=== PATIENT | female | born 1980 | race Caucasian/White ===

== ENCOUNTER 2016-05-31 20:52 | Emergency (ER) | payer BC ==
[2016-05-31 21:04] VITALS: BP 117/62
--- NOTE | 2016-05-31 21:25 | UC ---
Throat Pain/Nasal Que HPI - HPI Summary HPI Summary: Nasal congestion, ST, cough, fever starting 2 days ago. Denies wheezing or chest pain. 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 - History of Current Complaint Chief Complaint: UCGeneralIllness Stated Complaint: SORE THROAT Time Seen by Provider: 05/31/16 21:08 Hx Obtained From: Patient Hx Last Menstrual Period: 05/04/16 denies risk of Onset/Duration: Gradual Onset, Lasting Days Severity: Moderate Cough: Productive Associated Signs & Symptoms: Positive: Nasal Discharge, Fever. Negative: Wheezing - Allergies/Home Medications Allergies/Adverse Reactions: Allergies Allergy/AdvReac Type Severity Reaction Status Date / Time SHRIMP Allergy Intermediate Hives Uncoded 05/31/16 21:04 Home Medications: Home Medications NK [No Home Medications Reported] 05/31/16 [History Confirmed 05/31/16] PMH/Surg Hx/FS Hx/Imm Hx Endocrine History Of: Denies: Diabetes, Thyroid Disease Cardiovascular History Of: Denies: Cardiac Disorders, Hypertension Respiratory History Of: Reports: Asthma - A CHILD Denies: COPD GI/ History Of: Denies: Ulcer - Surgical History Surgical History: Yes Surgery Procedure, Year, and Place: 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, 2010, [employer] - Family History Known Family History: Positive: Other - no FMH of UTI - Social History Occupation: Employed Full-time Alcohol Use: Occasionally Substance Use Type: None Smoking Status (MU): Heavy Every Day Tobacco Smoker Type: Cigarettes Amount Used/How Often: 1 PPD Length of Time of Smoking/Using Tobacco: 25 Years Have You Smoked in the Last Year: Yes - Immunization History Most Recent Influenza Vaccination: none Review of Systems Constitutional: Fever, Chills Skin: Negative Eyes: Negative ENT: Sore Throat, Nasal Discharge Respiratory: Cough Cardiovascular: Negative Gastrointestinal: Negative Genitourinary: Negative Motor: Negative Neurovascular: Negative Musculoskeletal: Negative Neurological: Negative Psychological: Negative All Other Systems Reviewed And Are Negative: Yes Physical Exam Triage Information Reviewed: Yes Appearance: Well-Nourished, Pain Distress - mild Vital Signs: Initial Vital Signs Temp 98.6 F 05/31/16 20:59 Pulse 84 05/31/16 20:59 Resp 17 05/31/16 20:59 BP 117/62 05/31/16 20:59 Pulse Ox 97 05/31/16 20:59 Vital Signs Reviewed: Yes Eye Exam: Normal Eyes: Positive: Conjunctiva Clear ENT: Positive: Hearing grossly normal, Nasal congestion, Nasal drainage, TMs normal. Negative: Tonsillar swelling, Tonsillar exudate Dental Exam: Normal Neck exam: Normal Neck: Positive: Supple, Nontender, No Lymphadenopathy Respiratory Exam: Normal Respiratory: Positive: Chest non-tender, Lungs clear, Normal breath sounds, No respiratory distress, No accessory muscle use Cardiovascular Exam: Normal Cardiovascular: Positive: RRR, No Murmur Musculoskeletal Exam: Normal Neurological Exam: Normal Psychological Exam: Normal Skin Exam: Normal Throat Pain/Nasal Course/Dx - Differential Dx/Diagnosis Provider Diagnoses: [id number] Discharge - Discharge Plan Condition: Stable Disposition: HOME Patient Education Materials: Influenza (ED) Referrals: No Primary Care Phys,NOPCP [Primary Care Provider] - Additional Instructions: Call or return if you develop increasing fever, shortness of breath, chest pain , bloody sputum, or otherwise worsen. If you have not improved at all after several days, contact your primary care physician or return here.
== END 2016-05-31 21:20 | disposition home or self-care (01) ==
LOC: UCCORT 20:52
DX: J11.1 Influenza due to unidentified influenza virus with other respiratory manifestations (principal); F17.210 Nicotine dependence, cigarettes, uncomplicated
CPT/HCPCS: 99211; G0463

== ENCOUNTER 2016-09-13 10:26 | Emergency (ER) | payer BC ==
[2016-09-13 10:50] VITALS: BP 126/74
--- NOTE | 2016-09-13 11:01 | UC ---
General HPI - HPI Summary HPI Summary: Patient has had multiple partners and found out that the one partner was positive for STD's. was unable to find out which one. She denies any symptoms, is unsure of her LMP. states her periods are not regular. Denies any previous STD's. 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, 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 - Family History Known Family History: Positive: Hypertension, Other - Social History Alcohol Use: Occasionally Substance Use Type: None Smoking Status (MU): Heavy Every Day Tobacco Smoker Type: Cigarettes Amount Used/How Often: 1 PPD Length of Time of Smoking/Using Tobacco: 25 Years Have You Smoked in the Last Year: Yes - Immunization History Most Recent Influenza Vaccination: NONE Most Recent Tetanus Shot: UNKNOWN Most Recent Pneumonia Vaccination: N/A Review of Systems Constitutional: Negative Skin: Other - cold sore 32 weeks ago Eyes: Negative ENT: Negative Respiratory: Negative Cardiovascular: Negative Gastrointestinal: Negative Genitourinary: Negative Motor: Negative Neurovascular: Negative Musculoskeletal: Negative Neurological: Negative Psychological: Negative All Other Systems Reviewed And Are Negative: Yes Physical Exam Triage Information Reviewed: Yes Appearance: Well-Appearing, Well-Nourished, Pain Distress Vital Signs: Initial Vital Signs Temp 99 F 09/13/16 10:32 Pulse 79 09/13/16 10:32 Resp 18 09/13/16 10:32 BP 126/74 09/13/16 10:32 Pulse Ox 100 09/13/16 10:32 Vital Signs Reviewed: Yes Eye Exam: Normal Eyes: Positive: Conjunctiva Clear ENT: Positive: Hearing grossly normal, Pharynx normal, TMs normal Dental Exam: Normal Neck exam: Normal Neck: Positive: Supple, Nontender, No Lymphadenopathy Respiratory Exam: Normal Respiratory: Positive: Chest non-tender, Lungs clear, Normal breath sounds Cardiovascular Exam: Normal Cardiovascular: Positive: RRR, No Murmur, Pulses Normal Abdominal Exam: Normal Abdomen Description: Positive: Nontender, No Organomegaly, Soft Bowel Sounds: Positive: Present Musculoskeletal Exam: Normal Musculoskeletal: Positive: Strength Intact, ROM Intact, No Edema Neurological Exam: Normal Neurological: Positive: Alert Psychological Exam: Normal Psychological: Positive: Other: - slightly anxious Skin: Positive: Other - no obvious lesions, Course/Dx - Course Course Of Treatment: hx obtained, exam performed, meds reviewed, blood work and urine sample obtained. recommend follow up with a [employer] for full workup including pap smear and routine care. No treatment was given at this time as patient is asymptomatic, will wait for the results of blood work and urine. she is not wure of what she was exposed to. - Differential Dx - Multi-Symptom Provider Diagnoses: high risk sexual behavior. irregular menses Discharge - Discharge Plan Condition: Stable Disposition: HOME Patient Education Materials: Sexually Transmitted Diseases (ED) Additional Instructions: 1. Your blood work will be available within the next week. 2. I do recommend that you follow up with your Site Operations Manager for a full workup including a Papsmear to test for HPV and cervical cancer. 3. Use protection at all times when having sex.
[2016-09-13 14:51] LABS: Syphilis Index < 0.1 Index
[2016-09-14 13:04] LABS: Herpes Simplex Virus I IgG AB Positive (Negative); Herpes Simplex Virus II IgG AB Positive (Negative)
== END 2016-09-13 11:22 | disposition home or self-care (01) ==
LOC: UCCORT 10:26
DX: Z72.51 High risk heterosexual behavior (principal); N92.6 Irregular menstruation, unspecified; Z32.02 Encounter for pregnancy test, result negative; F17.210 Nicotine dependence, cigarettes, uncomplicated
CPT/HCPCS: 36415; 84702; 86592; 86695; 86696; 86706; 86803; 87491; 87591; 99211; G0463

== ENCOUNTER 2016-10-13 19:58 | Emergency (ER) | payer BC ==
[2016-10-13 20:19] VITALS: BP 120/68
--- NOTE | 2016-10-13 20:25 | UC ---
Abdominal Pain Female HPI - History of Current Complaint Chief Complaint: UCAbdominalPain Stated Complaint: ABD PAIN Time Seen by Provider: 10/13/16 20:19 Hx Obtained From: Patient Hx Last Menstrual Period: 09/22/16 ?: No Onset/Duration: Gradual Onset, Lasting Days - 3, Worse Since - today going back to work. Timing: Constant - pain with severe cramping Severity Initially: Mild Severity Currently: Moderate Location: Suprapubic Radiates: Yes Radiates to: Back Character: Cramping, Dull - all the time, Sharp Aggravating Factor(s): Nothing Alleviating Factor(s): Nothing Associated Signs and Symptoms: Positive: Back Pain - has chronic back pain., Diarrhea - stool just a little loose.. 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, 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 - Family History Known Family History: Positive: Cardiac Disease, Hypertension, Diabetes, Other - Social History Occupation: Employed Full-time Lives: Alone Alcohol Use: Occasionally Substance Use Type: None Smoking Status (MU): Heavy Every Day Tobacco Smoker Type: Cigarettes Amount Used/How Often: 1 PPD Length of Time of Smoking/Using Tobacco: 25 Years Have You Smoked in the Last Year: Yes Cessation Counseling: Patient Advised to Stop - Immunization History Most Recent Influenza Vaccination: none Most Recent Tetanus Shot: UNKNOWN Most Recent Pneumonia Vaccination: N/A Review of Systems Gastrointestinal: Abdominal Pain All Other Systems Reviewed And Are Negative: Yes Physical Exam Triage Information Reviewed: Yes Appearance: Well-Appearing, Well-Nourished, Pain Distress Vital Signs: Initial Vital Signs Temp 98.8 F 10/13/16 20:15 Pulse 87 10/13/16 20:15 Resp 16 10/13/16 20:15 BP 120/68 10/13/16 20:15 Pulse Ox 99 10/13/16 20:15 Vital Signs Reviewed: Yes Eyes: Positive: Conjunctiva Clear Dental: Positive: Gross Decay/Caries @ Neck: Positive: Supple, Nontender, No Lymphadenopathy Respiratory: Positive: Lungs clear Cardiovascular Exam: Normal Abdomen Description: Positive: Soft, McBurney's Point Tenderness. Negative: Nontender - RLQ tenderness> suprapubic> LLQ. Musculoskeletal Exam: Normal Neurological Exam: Normal Psychological Exam: Normal Abd Pain Female Course/Dx - Differential Dx/Diagnosis Differential Diagnosis: Appendicitis, Ovarian Cyst, Pelvic Inflammatory Disease , Urinary Tract Infection Provider Diagnoses: Right lower quadrant abdominal pain - Physician Notification/Consults Discussed Care of Patient With: rikki Time Discussed With Above Provider: 20:54 Instructed by Provider To: Transfer - [facility], R/O appendicitis Discharge - Discharge Plan Condition: Guarded Disposition: TRANS HIGHER LVL OF CARE FAC Discharge Disposition Comment: stable to drive to ER.
== END 2016-10-13 20:55 | disposition left against medical advice (07) ==
LOC: UCCORT 19:58
DX: R10.31 Right lower quadrant pain (principal); F17.210 Nicotine dependence, cigarettes, uncomplicated
CPT/HCPCS: 81003; 84702; 99212; G0463

== ENCOUNTER 2016-12-19 20:47 | Emergency (ER) | payer BC ==
[2016-12-19 20:59] VITALS: BP 108/60
--- NOTE | 2016-12-19 21:21 | UC ---
Throat Pain/Nasal Que HPI - HPI Summary HPI Summary: Pt c/o sore throat, wheezing, cough, chills, fatigue, X 3-4 days. - History of Current Complaint Chief Complaint: UCGeneralIllness Stated Complaint: SORE THROAT,EARS Time Seen by Provider: 12/19/16 21:07 Hx Obtained From: Patient Hx Last Menstrual Period: CURRENT ?: No Onset/Duration: Gradual Onset, Lasting Days Severity: Moderate Cough: Productive - dark, green Associated Signs & Symptoms: Positive: Dysphagia, Wheezing, Other - fatigue Related History: Smoking - Allergies/Home Medications Allergies/Adverse Reactions: Allergies Allergy/AdvReac Type Severity Reaction Status Date / Time SHRIMP Allergy Intermediate Hives Uncoded 12/19/16 20:58 Home Medications: Home Medications Apple Cider Vinegar-Green Tea- [Apple Cider Vinegar Plus] 1 tab PO DAILY [History Confirmed 12/19/16] Cholecalciferol [Vitamin D3] 400 unit PO DAILY 12/19/16 [History Confirmed 12/19] Cyanocobalamin TAB* [Vitamin B12 TAB*] 500 mcg PO DAILY 12/19/16 [History Confirmed 12/19/16] Green Tea (Camillia Sinensis) [Green Tea] 250 mg PO DAILY 12/19/16 [History Confirmed 12/19/16] Melatonin 5 mg PO DAILY 12/19/16 [History Confirmed 12/19/16] Lor's Wort ([place] Perf [[place] Wort] 150 mg PO DAILY 12/19/16 [ History Confirmed 12/19/16] Turmeric (Curcuma Longa) [Turmeric] 450 mg PO DAILY 12/19/16 [History Confirmed 12/19/16] Zinc [Chelated Zinc] 50 mg PO DAILY 12/19/16 [History Confirmed 12/19/16] PMH/Surg Hx/FS Hx/Imm Hx Previously Healthy: Yes - Surgical History Surgical History: Yes Surgery Procedure, Year, and Place: 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, 2010, [employer] - Family History Known Family History: Positive: Cardiac Disease, Hypertension, Diabetes, Other - Social History Occupation: Employed Full-time Lives: With Family Alcohol Use: Rare Substance Use Type: None Smoking Status (MU): Heavy Every Day Tobacco Smoker Type: Cigarettes Amount Used/How Often: 1/2 TO 1 PPD Length of Time of Smoking/Using Tobacco: 26 Years Have You Smoked in the Last Year: Yes - Immunization History Most Recent Influenza Vaccination: none Most Recent Tetanus Shot: UNKNOWN Most Recent Pneumonia Vaccination: N/A Review of Systems Constitutional: Chills, Fatigue Skin: Negative Eyes: Negative ENT: Sore Throat, Ear Ache Respiratory: Cough, Other - wheezing Cardiovascular: Negative Gastrointestinal: Negative Genitourinary: Negative Motor: Negative Neurovascular: Negative Musculoskeletal: Negative Neurological: Negative Psychological: Negative Is Patient Immunocompromised?: No All Other Systems Reviewed And Are Negative: Yes Physical Exam Triage Information Reviewed: Yes Appearance: Ill-Appearing Vital Signs: Initial Vital Signs Temp 98.2 F 12/19/16 20:52 Pulse 72 12/19/16 20:52 Resp 16 12/19/16 20:52 BP 108/60 12/19/16 20:52 Pulse Ox 97 12/19/16 20:52 Vital Signs Reviewed: Yes Eye Exam: Normal ENT Exam: Other ENT: Positive: Pharyngeal erythema, Nasal congestion Neck exam: Normal Respiratory Exam: Other Respiratory: Positive: Wheezing Cardiovascular Exam: Normal Musculoskeletal Exam: Normal Neurological Exam: Normal Psychological Exam: Normal Skin Exam: Normal Throat Pain/Nasal Course/Dx - Differential Dx/Diagnosis Differential Diagnosis/HQI/PQRI: Influenza, Tonsillitis, URI Provider Diagnoses: pharyngitis. Wheezing. Bronchitis Discharge - Discharge Plan Condition: Stable Disposition: HOME Prescriptions: Albuterol HFA INHALER* [Ventolin HFA Inhaler*] 1 - 2 puff INH Q4H PRN #1 mdi PRN Reason: Sob/Wheezing Amoxicillin PO (*) [Amoxicillin 500 MG CAP*] 500 mg PO Q12H #20 cap Patient Education Materials: Pharyngitis (ED), Wheezing (ED) Forms: *Work Release Referrals: No Primary Care Phys,NOPCP [Primary Care Provider] -
[2016-12-19] MEDS ORDERED: Amoxicillin PO (*) 500 MG CAP PO ONE (21:24)
== END 2016-12-19 21:34 | disposition home or self-care (01) ==
LOC: UCCORT 20:47
DX: J02.9 Acute pharyngitis, unspecified (principal); R06.2 Wheezing; J40 Bronchitis, not specified as acute or chronic; F17.210 Nicotine dependence, cigarettes, uncomplicated
CPT/HCPCS: 99212; A9270-GY; G0463

== ENCOUNTER 2017-06-17 19:20 | Emergency (ER) | payer BC ==
[2017-06-17 20:47] VITALS: BP 110/75
[2017-06-17] MEDS ORDERED: predniSONE TAB* 20 MG PO ONE (21:15)
[2017-06-17] MEDS ORDERED: Meclizine TAB* 12.5 MG PO ONE (21:16)
--- NOTE | 2017-06-17 21:21 | UC ---
Ear Complaint HPI - HPI Summary HPI Summary: 37 yo female with biltateral ear fullness and nasal congestion x weeks Has been feeling dizzy with occasional episodes of vertigo no ringing or roaring in ears no Dobbs some facial pressure no n/v/d no falls - History of Current Complaint Chief Complaint: UCDizziness Stated Complaint: EAR PAIN/DIZZINESS Time Seen by Provider: 06/17/17 21:07 Hx Obtained From: Patient Hx Last Menstrual Period: 06/13/17 Onset/Duration: Gradual Onset, Lasting Weeks, Worse Since - x 2-3 days Severity Initially: Mild Severity Currently: Moderate Pain Intensity: 4 Pain Scale Used: 0-10 Numeric Alleviating Factors: Nothing Associated Signs/Symptoms: Positive: Hearing Loss, URI Symptoms - Allergies/Home Medications Allergies/Adverse Reactions: Allergies Allergy/AdvReac Type Severity Reaction Status Date / Time SHRIMP Allergy Intermediate Hives Uncoded 06/17/17 20:37 Home Medications: Home Medications ALPRAZolam [Xanax] 0.25 mg PO 06/17/17 [History] Amoxicillin/Clavulanate TAB* [Augmentin TAB 250*] 125 mg 06/17/17 [History] Buspirone HCl 10 mg PO 06/17/17 [History] PMH/Surg Hx/FS Hx/Imm Hx Previously Healthy: Yes - Surgical History Surgical History: Yes Surgery Procedure, Year, and Place: 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, 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, 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 - Family History Known Family History: Positive: Cardiac Disease, Hypertension, Diabetes, Other - Social History Alcohol Use: Rare Substance Use Type: None Smoking Status (MU): Heavy Every Day Tobacco Smoker Type: Cigarettes Amount Used/How Often: 1/2 TO 1 PPD Length of Time of Smoking/Using Tobacco: 26 Years Have You Smoked in the Last Year: Yes - Immunization History Most Recent Influenza Vaccination: none Most Recent Tetanus Shot: UNKNOWN Most Recent Pneumonia Vaccination: N/A Review of Systems Constitutional: Negative Skin: Negative Eyes: Negative ENT: Ear Ache, Nasal Discharge Respiratory: Negative Cardiovascular: Negative Gastrointestinal: Negative Genitourinary: Negative Motor: Negative Neurovascular: Negative Musculoskeletal: Negative Neurological: Negative Psychological: Negative Is Patient Immunocompromised?: No All Other Systems Reviewed And Are Negative: Yes Physical Exam Triage Information Reviewed: Yes Appearance: Well-Appearing, No Pain Distress, Well-Nourished Vital Signs: Initial Vital Signs Temp 98.4 F 06/17/17 20:41 Pulse 67 06/17/17 20:41 Resp 16 06/17/17 20:41 BP 110/75 06/17/17 20:41 Pulse Ox 98 06/17/17 20:41 Eyes: Positive: Conjunctiva Clear ENT: Positive: Nasal congestion, TM bulging, Sinus tenderness - slight, Uvula midline. Negative: Hearing grossly normal, Nasal drainage, TMs normal, TM dull , TM red, Tonsillar swelling, Tonsillar exudate, Trismus, Muffled voice, Hoarse voice Dental Exam: Normal Neck: Positive: Supple, Nontender, No Lymphadenopathy Respiratory: Positive: Lungs clear, Normal breath sounds, No respiratory distress, No accessory muscle use Cardiovascular: Positive: RRR, No Murmur Musculoskeletal: Positive: ROM Intact, No Edema Neurological: Positive: Alert, Muscle Tone Normal Psychological Exam: Normal Skin Exam: Normal Ear Complaint Course/Dx - Differential Dx/Diagnosis Provider Diagnoses: serous otitis media. eustachian tube dysfunction. dizziness Discharge - Discharge Plan Condition: Stable Disposition: HOME Prescriptions: Meclizine TAB* [Antivert 12.5 TAB*] 12.5 - 25 mg PO QID PRN #20 tab PRN Reason: Dizziness predniSONE [Deltasone] 40 mg PO DAILY #13 tab Patient Education Materials: Dizziness (ED), Serous Otitis Media (ED) Forms: *Work Release Referrals: Shiva Rivero MD [Primary Care Provider] - 1 Week Additional Instructions: recheck next week if not better recheck sooner for new symptoms
== END 2017-06-17 21:28 | disposition home or self-care (01) ==
LOC: UCCORT 19:20
DX: H65.90 Unspecified nonsuppurative otitis media, unspecified ear (principal); H69.90 Unspecified Eustachian tube disorder, unspecified ear; R42 Dizziness and giddiness; F17.210 Nicotine dependence, cigarettes, uncomplicated
CPT/HCPCS: 99213; A9270-GY; G0463; J7512

== ENCOUNTER 2017-08-17 13:55 | Emergency (ER) | payer SELFPAY ==
[2017-08-17 15:34] VITALS: BP 122/65
--- NOTE | 2017-08-17 16:21 | UC ---
UC General HPI - HPI Summary HPI Summary: while at work, had a cow step on her L thumb. c/o pain. immediately took 800mg motrin and put hand in ice. notes not as bad now. no limited rom. - History of Current Complaint Chief Complaint: UCUpperExtremity Stated Complaint: LFT HAND THUMB INJURY Time Seen by Provider: 08/17/17 16:05 Hx Obtained From: Patient Hx Last Menstrual Period: 08/09/17 Onset/Duration: Sudden Onset Timing: Constant Pain Intensity: 5 Alleviating: motrin and ice Associated Signs & Symptoms: Negative: Edema, Fever - Allergy/Home Medications Allergies/Adverse Reactions: Allergies Allergy/AdvReac Type Severity Reaction Status Date / Time SHRIMP Allergy Intermediate Hives Uncoded 08/17/17 15:26 PMH/Surg Hx/FS Hx/Imm Hx Psychological History: Anxiety, Depression - Surgical History Surgical History: Yes Surgery Procedure, Year, and Place: 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, 2010, [employer] - Family History Known Family History: Positive: Cardiac Disease, Hypertension, Diabetes, Other - Social History Occupation: Employed Full-time Lives: Alone Alcohol Use: Rare Substance Use Type: None Smoking Status (MU): Heavy Every Day Tobacco Smoker Type: Cigarettes Amount Used/How Often: 1/2 TO 1 PPD Length of Time of Smoking/Using Tobacco: 26 Years Have You Smoked in the Last Year: Yes - Immunization History Most Recent Influenza Vaccination: none Most Recent Tetanus Shot: UNKNOWN Most Recent Pneumonia Vaccination: N/A Review of Systems Constitutional: Negative Skin: Negative Eyes: Negative ENT: Negative Respiratory: Negative Cardiovascular: Negative Gastrointestinal: Negative Genitourinary: Negative Motor: Negative Neurovascular: Negative Musculoskeletal: Other: - pain l thumb Neurological: Negative Psychological: Negative Is Patient Immunocompromised?: No All Other Systems Reviewed And Are Negative: Yes Physical Exam Triage Information Reviewed: Yes Appearance: Well-Appearing Vital Signs: Initial Vital Signs Temp 98.9 F 08/17/17 15:29 Pulse 78 08/17/17 15:29 Resp 18 08/17/17 15:29 BP 122/65 08/17/17 15:29 Pulse Ox 99 08/17/17 15:29 Vital Signs Reviewed: Yes Eyes: Positive: Conjunctiva Clear ENT: Positive: Normal ENT inspection Neck: Positive: Supple, Nontender, No Lymphadenopathy Respiratory: Positive: Lungs clear, Normal breath sounds Cardiovascular: Positive: RRR, No Murmur Abdomen Description: Positive: Nontender, No Organomegaly, Soft Bowel Sounds: Positive: Present Musculoskeletal: Positive: Other: - L hand= no gross deformity, swelling or discoloration. no breaks in skin. base of thumb is tender. no joint laxity. gross s/v/m is intact. Neurological: Positive: Alert Psychological: Positive: Age Appropriate Behavior Skin Exam: Normal Diagnostics - Radiology No standard instances Xray Interpretation: No Acute Changes Radiology Interpretation Completed By: Radiologist Course/Dx - Course Course Of Treatment: no fx or dislocation. no breaks in skin. 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 - Differential Dx - Multi-Symptom Provider Diagnoses: Contusion L thumb Discharge - Sign-Out/Discharge Documenting (check all that apply): Discharge/Admit/Transfer - Discharge Plan Condition: Stable Disposition: HOME Patient Education Materials: Contusion in Adults (ED) Referrals: Shiva Rivero MD [Primary Care Provider] - If Needed - Billing Disposition and Condition Condition: STABLE Disposition: HOME
--- NOTE | 2017-08-17 16:40 | RAD ---
INDICATION: Left thumb injury. TECHNIQUE: 3 views of the left thumb were obtained. FINDINGS: The bones are in normal alignment. No fracture is seen. Joint spaces appear maintained. IMPRESSION: NO EVIDENCE FOR FRACTURE.
== END 2017-08-17 16:52 | disposition home or self-care (01) ==
LOC: UCCORT 13:55
DX: S60.012A Contusion of left thumb without damage to nail, initial encounter (principal); W55.22XA Struck by cow, initial encounter; Y92.9 Unspecified place or not applicable; F17.210 Nicotine dependence, cigarettes, uncomplicated
CPT/HCPCS: 99211; G0463

== ENCOUNTER 2017-09-29 17:03 | Emergency (ER) | payer SELFPAY ==
[2017-09-29 17:44] VITALS: BP 106/64
--- NOTE | 2017-09-29 18:29 | RAD ---
Indication: Crush injury RIGHT foot. Stepped on by cow. Comparison: No relevant prior exams available on the [facility] PACS for comparison. Technique: AP, lateral, and oblique views RIGHT foot. Report: Negative for fracture or malalignment. Chronic appearing accessory ossicle or sequela of remote injury noted at the proximal dorsal margin of the navicula reference the lateral view. Small Achilles tendon insertion and plantar fascia origin bone spurs. Unremarkable soft tissue contours. IMPRESSION: No radiographic evidence for traumatic RIGHT foot injury.
--- NOTE | 2017-09-29 18:51 | UC ---
Lower Extremity/Ankle HPI - HPI Summary HPI Summary: Pt c/o right foot pain s/p a cow stepping on foot. - History of Current Complaint Hx Obtained From: Patient Hx Last Menstrual Period: 09/10/17 ?: No Onset/Duration: Sudden Onset, Still Present Severity Initially: Moderate Severity Currently: Moderate Pain Intensity: 5 Pain Scale Used: 0-10 Numeric Aggravating Factor(s): Standing, Ambulation Alleviating Factor(s): Rest, Elevation, Ice Able to Bear Weight: Yes - minimal Related History: Occupational Injury - Risk Factors Gout Risk Factors: Negative DVT Risk Factors: Smoking <Kristin Blanton NP - Last Filed: 09/29/17 18:48> <Gerardo Boo - Last Filed: 09/29/17 20:33> - History of Current Complaint Chief Complaint: UCLowerExtremity Stated Complaint: RIGHT FOOT INJURY Time Seen by Provider: 09/29/17 18:24 - Allergies/Home Medications Allergies/Adverse Reactions: Allergies Allergy/AdvReac Type Severity Reaction Status Date / Time SHRIMP Allergy Intermediate Hives Uncoded 09/29/17 17:40 Home Medications: Home Medications buPROPion TAB* [Wellbutrin TAB*] 100 mg PO DAILY 09/29/17 [History Confirmed ] PMH/Surg Hx/FS Hx/Imm Hx Previously Healthy: Yes - Surgical History Surgical History: Yes Surgery Procedure, Year, and Place: 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, 2010, [employer] - Family History Known Family History: Positive: Cardiac Disease, Hypertension, Diabetes, Other - Social History Occupation: Employed Full-time Lives: With Family Alcohol Use: Rare Substance Use Type: None Smoking Status (MU): Heavy Every Day Tobacco Smoker Type: Cigarettes Amount Used/How Often: 1/2 TO 1 PPD Length of Time of Smoking/Using Tobacco: 26 Years Have You Smoked in the Last Year: Yes - Immunization History Most Recent Influenza Vaccination: none Most Recent Tetanus Shot: UNKNOWN Most Recent Pneumonia Vaccination: N/A <Kristin Blanton NP - Last Filed: 09/29/17 18:48> Review of Systems Constitutional: Negative Skin: Bruising Eyes: Negative ENT: Negative Respiratory: Negative Cardiovascular: Negative Gastrointestinal: Negative Genitourinary: Negative Motor: Decreased ROM - right foot Neurovascular: Negative Musculoskeletal: Arthralgia, Decreased ROM, Edema, Myalgia Neurological: Negative Psychological: Negative Is Patient Immunocompromised?: No All Other Systems Reviewed And Are Negative: Yes <Kristin Blanton NP Last Filed: 09/29/17 18:48> Physical Exam Triage Information Reviewed: Yes Appearance: Well-Appearing Vital Signs: Initial Vital Signs Temp 99.4 F 09/29/17 17:37 Pulse 83 09/29/17 17:37 Resp 13 09/29/17 17:37 BP 106/64 09/29/17 17:37 Pulse Ox 98 09/29/17 17:37 Vital Signs Reviewed: Yes Eye Exam: Normal ENT: Positive: Hearing grossly normal Dental: Positive: Gross Decay/Caries @ Neck exam: Normal Respiratory: Positive: No respiratory distress Musculoskeletal: Positive: Strength Limited @ - right foot, ROM Limited @ - right foot and great toe, bruising, great toe and medial aspect of right foot, Edema @ Neurological Exam: Normal Psychological Exam: Normal Skin Exam: Other - bruising, right foot <Kristin Blanton NP Last Filed: 09/29/17 18:48> Vital Signs: Initial Vital Signs Temp 99.4 F 09/29/17 17:37 Pulse 83 09/29/17 17:37 Resp 13 09/29/17 17:37 BP 106/64 09/29/17 17:37 Pulse Ox 98 09/29/17 17:37 <Gerardo Boo - Last Filed: 09/29/17 20:33> Diagnostics - Radiology No standard instances Radiology Interpretation Completed By: Radiologist - IMPRESSION: No radiographic evidence for traumatic RIGHT foot injury <Kristin Blanton NP Last Filed: 09/29/17 18:48> Lower Extremity Course/Dx - Differential Dx/Diagnosis Differential Diagnosis/HQI/PQRI: Contusion, Fracture (Closed) Provider Diagnoses: right foot contusion <Kristin Blanton NP Last Filed: 09/29/17 18:48> Discharge - Sign-Out/Discharge Documenting (check all that apply): Discharge/Admit/Transfer - Billing Disposition and Condition Condition: STABLE Disposition: Home <Kristin Blanton NP Last Filed: 09/29/17 18:48> - Billing Disposition and Condition Condition: STABLE Disposition: Home <Gerardo Boo - Last Filed: 09/29/17 20:33> - Discharge Plan Condition: Stable Disposition: HOME Patient Education Materials: Foot Contusion (ED), R.I.C.E. Treatment (ED) Forms: *Work Release Referrals: Wilbert Lord MD [Medical Doctor] - 7 Days (If no imporvement in 1 week please follow up with Dr. Lord. ) Shiva Rivero MD [Primary Care Provider] - Additional Instructions: Per institutional requirements, I have reviewed the chart, however, I was not consulted specifically or made aware of this patient by the above midlevel provider. I did not personally evaluate, interact with , or disposition this patient.
== END 2017-09-29 18:43 | disposition home or self-care (01) ==
LOC: UCCORT 17:03
DX: S90.31XA Contusion of right foot, initial encounter (principal); W55.29XA Other contact with cow, initial encounter; Y93.9 Activity, unspecified; Y99.9 Unspecified external cause status; F17.210 Nicotine dependence, cigarettes, uncomplicated
CPT/HCPCS: 84702; 99212; G0463

== ENCOUNTER 2018-04-26 19:23 | Emergency (ER) | payer SELFPAY ==
[2018-04-26 19:32] VITALS: BP 118/77
[2018-04-26] MEDS ORDERED: Amoxicillin PO (*) 500 MG CAP PO ONE (19:44)
--- NOTE | 2018-04-26 20:09 | UC ---
Ear Complaint HPI - HPI Summary HPI Summary: Pt c/o left ear, jaw and dental/tooth pain that began 1 week ago. Pt states she has several broken teeth left upper back jaw. Pt states she does not have dental insurance and has poor dentition. Pain worsened in the last 24 hours. - History of Current Complaint Chief Complaint: UCEar Stated Complaint: LEFT EAR PAIN Time Seen by Provider: 04/26/18 19:32 Hx Obtained From: Patient Hx Last Menstrual Period: 03/30/18 ?: No Onset/Duration: Sudden Onset, Lasting Weeks, Still Present, Worse Since - onset Severity Initially: Mild Severity Currently: Moderate Pain Intensity: 7 Pain Scale Used: 0-10 Numeric - Allergies/Home Medications Allergies/Adverse Reactions: Allergies Allergy/AdvReac Type Severity Reaction Status Date / Time SHRIMP Allergy Intermediate Hives Uncoded 04/26/18 19:32 Home Medications: Home Medications Zinc 50 mg PO DAILY 04/26/18 [History Confirmed 04/26/18] PMH/Surg Hx/FS Hx/Imm Hx Previously Healthy: Yes - Surgical History Surgical History: Yes Surgery Procedure, Year, and Place: 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, 2010, 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 Sander - Family History Known Family History: Positive: Cardiac Disease, Hypertension, Diabetes, Other - Social History Occupation: Employed Full-time Lives: With Family Alcohol Use: Rare Substance Use Type: None Smoking Status (MU): Heavy Every Day Tobacco Smoker Type: Cigarettes Amount Used/How Often: 1/2 TO 1 PPD Length of Time of Smoking/Using Tobacco: 26 Years Have You Smoked in the Last Year: Yes - Immunization History Most Recent Influenza Vaccination: none Most Recent Tetanus Shot: UNKNOWN Most Recent Pneumonia Vaccination: N/A Review of Systems All Other Systems Reviewed And Are Negative: Yes Constitutional: Positive: Negative Skin: Positive: Negative Eyes: Positive: Negative ENT: Positive: Dental Pain, Ear Ache Respiratory: Positive: Negative Cardiovascular: Positive: Negative Gastrointestinal: Positive: Negative Genitourinary: Positive: Negative Motor: Positive: Negative Neurovascular: Positive: Negative Musculoskeletal: Positive: Negative Neurological: Positive: Negative Psychological: Positive: Negative Is Patient Immunocompromised?: No Physical Exam Triage Information Reviewed: Yes Appearance: Ill-Appearing, Pain Distress Vital Signs: Initial Vital Signs Temp 98.6 F 04/26/18 19:29 Pulse 83 04/26/18 19:29 Resp 20 04/26/18 19:29 BP 118/77 04/26/18 19:29 Pulse Ox 98 04/26/18 19:29 Vital Signs Reviewed: Yes Eye Exam: Normal ENT Exam: Normal Dental: Positive: Gross Decay/Caries @, Dental Fracture @ - several fractured teeeth Neck exam: Normal Neck: Positive: Supple, Nontender Respiratory Exam: Normal Cardiovascular Exam: Normal Musculoskeletal Exam: Normal Neurological Exam: Normal Psychological Exam: Normal Skin Exam: Normal Ear Complaint Course/Dx - Differential Dx/Diagnosis Differential Diagnosis/HQI/PQRI: Otitis Media, URI Provider Diagnosis: Dental infection, Poor dentition Discharge - Sign-Out/Discharge Documenting (check all that apply): Patient Departure All imaging exams completed and their final reports reviewed: No Studies - Discharge Plan Condition: Stable Disposition: HOME Prescriptions: Amoxicillin PO (*) [Amoxicillin 500 MG CAP*] 500 mg PO Q12H #20 cap Lidocaine 2% VISCOUS* [Xylocaine 2% Viscous*] 15 ml SWISH SPIT Q4H PRN #1 btl PRN Reason: Pain predniSONE TAB* [Deltasone 10 MG TAB*] 30 mg PO DAILY #12 tab Patient Education Materials: Dental Abscess (ED), Toothache (ED) Referrals: Shiva Rivero MD [Primary Care Provider] - If Needed - Billing Disposition and Condition Condition: STABLE Disposition: Home
== END 2018-04-26 19:55 | disposition home or self-care (01) ==
LOC: UCCORT 19:23
DX: K04.7 Periapical abscess without sinus (principal); F17.210 Nicotine dependence, cigarettes, uncomplicated
CPT/HCPCS: 99212; A9270-GY; G0463

== ENCOUNTER 2018-12-18 18:56 | Emergency (ER) | payer BC ==
[2018-12-18 19:16] VITALS: BP 117/72
[2018-12-18] MEDS ORDERED: Fluorescein Sodium TOPICAL* 1 MG TEST STRIP OPHTHALMIC ONE (19:23)
[2018-12-18] MEDS ORDERED: Tetracaine 0.5% OPTH.SOL 4 ML* 1 DROP BTL LEFT EYE ONE (19:23)
[2018-12-18] MEDS ORDERED: Eye Irrigation Solution 30 ML BOTTLE LEFT EYE ONE (19:23)
--- NOTE | 2018-12-18 19:25 | UC ---
Eye Complaint HPI - HPI Summary HPI Summary: 38 y/o female presents to the urgent care stating "I think there's a piece of sawdust in there." Gradual foreign body sensation in left eye for two to three hours. Pt reports symptoms started about 2-3hrs ago after "throwing sawdust [ bedding]" at work. Left eye intermittent "cloudy" vision, "discomfort", erythema w/ moderate yellowish-green discharge as well. She has irrigated her left eye w/ OTD eye irrigation w/ some mild relief. However she has noticed more yellowish discharge comes out. Pt denies eye pain or photophobia, but feels eye discomfort and irritation. Pt denies fever, CARLOS, visual changes, diplopia, dizziness, SOB, chest pain, abdominal pain, N/V/D. - History of Current Complaint Chief Complaint: UCEye Stated Complaint: POSSIBLE FB LEFT EYE Time Seen by Provider: 12/18/18 19:21 Hx Obtained From: Patient Hx Last Menstrual Period: 12/14/18 ?: No Onset/Duration: Sudden Onset, Lasting Hours - 3 hrs, Still Present Timing: Constant Severity Initially: Mild Severity Currently: Mild Pain Intensity: 3 - discomfort Pain Scale Used: 0-10 Numeric Location of Injury: Conjunctiva - left conjunctiva red w/ green discharge Character: Foreign Body Sensation Aggravating Factor(s): Blinking Alleviating Factor(s): Other - eye wash irrigation Associated Signs And Symptoms: Positive: Drainage (Purulent) - green. Negative : Photophobia, Vision Impairment Bilateral, Fever, Swelling - Risk Factors Penetrating Injury Risk Factor: Negative Globe Rupture Risk Factors: Negative Acute Glaucoma Risk Factors: Negative Optic Artery Occlusion Risk Factors: Negative - Allergies/Home Medications Allergies/Adverse Reactions: Allergies Allergy/AdvReac Type Severity Reaction Status Date / Time shrimp Allergy Hives Verified 12/18/18 19:10 Home Medications: Home Medications Balanced Salt Soln Non-Surg 6 [Eye Wash] 1 [email or web address] LEFT EYE SEE INSTRUCTIONS PRN 12/18/18 [History Confirmed 12/18/18] PMH/Surg Hx/FS Hx/Imm Hx Previously Healthy: Yes - Pt denies PMHX - Surgical History Surgical History: Yes Surgery Procedure, Year, and Place: 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, 2010, [place] - Family History Known Family History: Positive: Cardiac Disease, Hypertension, Diabetes, Other - Social History Occupation: Employed Full-time Lives: With Family Alcohol Use: Rare Substance Use Type: Marijuana Substance Use Comment - Amount & Last Used: Occasionally Smoking Status (MU): Heavy Every Day Tobacco Smoker Type: Cigarettes Amount Used/How Often: ~1/2 - 1 PPD Length of Time of Smoking/Using Tobacco: Since Age 12 Have You Smoked in the Last Year: Yes - Immunization History Most Recent Influenza Vaccination: none Most Recent Tetanus Shot: UNKNOWN Most Recent Pneumonia Vaccination: N/A Review of Systems All Other Systems Reviewed And Are Negative: Yes Constitutional: Positive: Negative Skin: Positive: Negative Eyes: Positive: Drainage - left green eye discharge, Eye Redness - left eye redness. Negative: Blurred Vision, Diplopia, Photophobia ENT: Positive: Negative Respiratory: Positive: Negative Cardiovascular: Positive: Negative Gastrointestinal: Positive: Negative Genitourinary: Positive: Negative Motor: Positive: Negative Neurovascular: Positive: Negative Musculoskeletal: Positive: Negative Neurological: Positive: Negative Psychological: Positive: Negative Is Patient Immunocompromised?: No Physical Exam - Summary Physical Exam Summary: Vital Signs Reviewed: Yes General: Well appearing, well nourished female in no apparent pain distress Eyes: Positive: LF eye with inflamed conjunctiva and moderate green eye discharge. B/L PERRLA, EOMI w/o eye complaint. Fundi appears benign. Disks are well delineated. There are no hemorrhages . Visual acuity is 20/20 bilaterally, and visual goldstein are within normal limits. No foreign body under eyelids observed with naked eye. moderate tearing and green drainage observed. No ciliary flush. No chemosis, No photophobia. Normal fundoscopic exam; no proptosis, exophthalmos, nystagmus. Rt conjunctiva clear ENT: Positive: Normal ENT inspection, Hearing grossly normal, Pharynx normal, Nasal congestion, Nasal drainage - clear, TMs normal - B/L external ear canal clear , TM's WNL. Negative: Tonsillar swelling, Tonsillar exudate Neck: Positive: Supple, Nontender, No Lymphadenopathy Respiratory: Positive: Chest nontender, Lungs clear, Normal breath sounds, No respiratory distress Cardiovascular: Positive: RRR, No Murmur, Pulses Normal, Brisk Capillary Refill Abdomen Description: Positive: Nontender, No Organomegaly, Soft. Negative: CVA Tenderness (R), CVA Tenderness (L) Bowel Sounds: Positive: Present Musculoskeletal: Positive: Strength Intact, ROM Intact, No Edema Neurological Exam: Normal Psychological Exam: Normal Skin Exam: Normal Triage Information Reviewed: Yes Vital Signs: Initial Vital Signs Temp 99.6 F 12/18/18 19:07 Pulse 80 12/18/18 19:07 Resp 16 12/18/18 19:07 BP 117/72 12/18/18 19:07 Pulse Ox 99 12/18/18 19:07 Eye Complaint Course/Dx - Course Course Of Treatment: 38 y/o female presents to the urgent care stating "I think there's a piece of sawdust in there." Gradual foreign body sensation in left eye for two to three hours. Pt reports symptoms started about 2-3hrs ago after "throwing sawdust [ bedding]" at work. Left eye intermittent "cloudy" vision, "discomfort", erythema w/ moderate yellowish-green discharge as well. She has irrigated her left eye w/ OTD eye irrigation w/ some mild relief. However she has noticed more yellowish discharge comes out. Pt denies eye pain or photophobia, but feels eye discomfort and irritation. Pt denies fever, CARLOS, visual changes, diplopia, dizziness, SOB, chest pain, abdominal pain, N/V/D. Hx obtained. RT eye with conjunctiva clear, sclera is white. LF eye with inflamed conjunctiva and moderate green eye discharge. B/L PERRLA, EOMI w/o any nystagmus or strabismus. Fundi appears benign. moderate tearing and green drainage observed. Disks are well delineated. Visual acuity is 20/20 bilaterally, and visual goldstein are within normal limits. No foreign body under eyelids observed with naked eye. 2 drops of Tetracaine optha drops placed on Pts left eye, then irrigated with saline drops to flush any foreign particles, then fluorescein instillation and examination with a UV lamp. No corneal abrasion observed, no conjunctiva lesions observed. No foreign body identified. Only moderate strings of green discharge After procedure. Pt felt better after procedure. Pt Rx Ciprofloxacin ophthalmic drops dispense here at the clinic since pharmacy closed now. Pt advised to f/u Dr Fried or her PCP for further management if not improvement of symptoms. D/C instructions explained. Pt understood and agreed w/ plan of care. - Differential Dx/Diagnosis Differential Diagnosis/HQI/PQRI: Conjunctivitis, Corneal Abrasion, Penetrating Injury, Periorbital Cellulitis, Orbital Cellulitis Provider Diagnosis: Acute bacterial conjunctivitis of left eye Discharge ED - Sign-Out/Discharge Documenting (check all that apply): Patient Departure - D/C home All imaging exams completed and their final reports reviewed: No Studies - Discharge Plan Condition: Stable Disposition: HOME Patient Education Materials: Conjunctivitis (ED) Referrals: Gris Perez MD [Primary Care Provider] - 3 Days Vivian Fried MD [Medical Doctor] - If Needed Additional Instructions: 1-Please apply ophthalmic drops as instructed and finish the full course of treatment to avoid recurrent infection. 2-If you do not improve or if symptoms worsen please f/u with chemistry laboratory technician Dr Fried or your PCP in 3 days for further evaluation and treatment - Billing Disposition and Condition Condition: STABLE Disposition: Home
[2018-12-18] MEDS ORDERED: Ciprofloxacin 0.3% OPTH.SOL* BTL LEFT EYE ONE ×2 (19:48→19:54)
== END 2018-12-18 20:04 | disposition home or self-care (01) ==
LOC: EDUNIT# → UCCORT 18:56
DX: H10.022 Other mucopurulent conjunctivitis, left eye (principal); F17.210 Nicotine dependence, cigarettes, uncomplicated
CPT/HCPCS: 99212; A9270-GY; G0463

== ENCOUNTER 2019-06-15 15:09 | Emergency (ER) | payer BC, OTHER ==
[2019-06-15 15:31] VITALS: BP 120/66
--- NOTE | 2019-06-15 16:02 | UC ---
Hand/Wrist HPI - HPI Summary HPI Summary: 39 yo female was kicked by a cow at work today (this AM) She is right handed declines analgesic no distal numbness - History Of Current Complaint Chief Complaint: UCUpperExtremity Stated Complaint: WC LEFT WRIST/FOREARM INJURY Time Seen by Provider: 06/15/19 15:50 Hx Obtained From: Patient Hx Last Menstrual Period: 05/30/2019 Onset/Duration: Sudden Onset, Still Present Severity Initially: Moderate Severity Currently: Mild Pain Intensity: 4 Pain Scale Used: 0-10 Numeric Character Of Pain: Dull, Aching Aggravating Factor(s): Movement, Flexion, Extension, Twisting Alleviating Factor(s): OTC Meds Associated Signs And Symptoms: Positive: Swelling Related History: Occupational Injury, Dominant Hand Right Hands: 1 - tender/swollen - Allergies/Home Medications Allergies/Adverse Reactions: Allergies Allergy/AdvReac Type Severity Reaction Status Date / Time shrimp Allergy Hives Verified 06/15/19 15:25 Home Medications: Home Medications Ibuprofen TAB* [Advil TAB*] 800 mg PO Q6H PRN 06/15/19 [History Confirmed ] PMH/Surg Hx/FS Hx/Imm Hx Previously Healthy: Yes - Surgical History Surgical History: Yes Surgery Procedure, Year, and Place: 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, 2010, [employer] - Family History Known Family History: Positive: Cardiac Disease, Hypertension, Diabetes, Other - Social History Alcohol Use: Daily Substance Use Type: Marijuana Substance Use Comment - Amount & Last Used: Occasionally Smoking Status (MU): Heavy Every Day Tobacco Smoker Type: Cigarettes Amount Used/How Often: 1 PPD Length of Time of Smoking/Using Tobacco: Since Age 12 Have You Smoked in the Last Year: Yes - Immunization History Most Recent Influenza Vaccination: none Most Recent Tetanus Shot: UNKNOWN Most Recent Pneumonia Vaccination: N/A Review of Systems All Other Systems Reviewed And Are Negative: Yes Constitutional: Positive: Negative Skin: Positive: Negative Eyes: Positive: Negative ENT: Positive: Negative Respiratory: Positive: Negative Cardiovascular: Positive: Negative Gastrointestinal: Positive: Negative Genitourinary: Positive: Negative Motor: Positive: Negative Neurovascular: Positive: Negative Musculoskeletal: Positive: Other: - see HPI Neurological/Mental Status: Positive: Negative Physical Exam Triage Information Reviewed: Yes Appearance: Well-Appearing, No Pain Distress, Well-Nourished Vital Signs: Initial Vital Signs Temp 98.6 F 06/15/19 15:27 Pulse 80 06/15/19 15:27 Resp 16 06/15/19 15:27 BP 120/66 06/15/19 15:27 Pulse Ox 97 06/15/19 15:27 Vital Signs Reviewed: Yes Eyes: Positive: Conjunctiva Clear ENT: Positive: Hearing grossly normal. Negative: Nasal congestion, Nasal drainage, Trismus, Muffled voice, Hoarse voice Neck: Positive: Supple, Nontender, No Lymphadenopathy Respiratory: Positive: Lungs clear, Normal breath sounds, No respiratory distress, No accessory muscle use Cardiovascular: Positive: RRR, No Murmur Musculoskeletal: Positive: Other: - see image Neurological: Positive: Alert Psychological Exam: Normal Skin Exam: Normal Diagnostics - Radiology No standard instances Radiology Interpretation Completed By: Radiologist Summary of Radiographic Findings: #. No cortical disruption or suspicious trabecular irregularity to suggest fracture. #. 0.25 cm ulnar minus variance with abnormally shortened ulna relative to the radius which in a minority of cases may predispose to Kienbock disease (avascular necrosis of the lunate). #. Mild scapholunate interval diastases which may be congenital or indicate age indeterminate scapholunate ligament injury/insufficiency. #. Preserved joint spaces. #. Mild nonfocal soft tissue swelling about the wrist. Hand/Wrist Course/Dx - Differential Dx/Diagnosis Provider Diagnosis: Contusion of left wrist Discharge ED - Sign-Out/Discharge Documenting (check all that apply): Patient Departure All imaging exams completed and their final reports reviewed: Yes - Discharge Plan Condition: Stable Disposition: HOME Patient Education Materials: Contusion in Adults (ED), Wrist Sprain (ED) Referrals: Wilbert Lord MD [Medical Doctor] - As Soon As Possible Additional Instructions: splint tylenol or advil no fracture noted follow up with orthopedist this is a suggestion that you may have torn a ligament you may need further imaging - Billing Disposition and Condition Condition: STABLE Disposition: Home
== END 2019-06-15 16:34 | disposition home or self-care (01) ==
LOC: UCCORT 15:09
DX: S60.212A Contusion of left wrist, initial encounter (principal); Z91.013 Allergy to seafood; F17.210 Nicotine dependence, cigarettes, uncomplicated; W55.22XA Struck by cow, initial encounter; Y92.9 Unspecified place or not applicable; Y99.0 Civilian activity done for income or pay
CPT/HCPCS: 99212; G0463